=== PATIENT | female | born 1930 | race Caucasian/White ===

== ENCOUNTER 2016-11-28 14:57 | Observation (INO) | payer OTHER ==
[~2016-11-28] VITALS: Ht 154.9 cm; Wt 63.2 kg
[~2016-11-28 14:57] MED LIST: ADVAIR 100/501 DISK IH; ALLOPURINOL100 MG PO; ARTIFICIAL TEAR15 M1 BOTH EYES; ASPIR-LOW81 MG PO; ASPIRIN81 M1 PO; Aspirin E.C. PO; BACTRIM,SEPT1 TABLE1 PO; BACTRIM,SEPT1 TABLET PO; BENTYL10 MG PO; BISACODYL5 MG PO; Bentyl PO; CARVEDILOL12.5 MG PO; CARVEDILOL25 MG PO; CENTRUM SILV1 TABLET PO; CLOPIDOGREL75 MG PO; COREG25 M1 PO; CRANBERRY450 M1 PO; Coreg PO; DAILY VITAMIN1 EAC8 PO; DICYCLOMINE HCL10 MG PO; DIOVAN HCT 11 TABLET PO; DIOVAN320 MG PO; ELIQUIS2.5 MG PO; FISH OIL 1,0001 EAC7 PO; FLORASTOR250 MG PO; HYDROCHLOROTHIA25 MG PO; Hydrodiuril,Oretic,E PO; JANUVIA25 M1 PO; JANUVIA25 MG PO; KEFLEX500 MG PO; LEVAQUIN500 MG PO; MECLIZINE HCL12.5 M1 PO; METOCLOPRAMIDE10 MG PO; MULTIVITAMIN1 EAC2 PO; NABI650T PO; NITROSTAT0.4 MG PO; NITROSTAT0.4 MG SL; NORCO 5/3251 TABLET PO; OMEPRAZOLE20 MG PO; PRILOSEC20 MG PO; PROVENTIL,200 INHALA IH; REPATHA SU140 MG/1 M SC; SENNA PLUS TAB1 EACH PO; SIMVASTATIN5 MG PO; TYLENOL EXTRA500 MG PO; VENTOLIN HFA18 GM IH; VITAMIN D2000 UNIT PO; XARELTO15 MG PO; Xarelto PO; ZOCOR5 MG PO; ZOFRAN ODT4 MG PO; ZOFRAN4 MG PO; Zocor PO
[2016-11-28 15:43] LABS: HEMATOCRIT 43.4 % (36.0-46.0); MCH 30.7 PG (29.0-34.0); MCHC 33.4 G/DL (30.0-36.0); MCV 91.8 FL (83-99); MEAN PLAT.VOLUME 10.7 uM^3 (9.5-12.4); PLATELET COUNT 223 K/uL (156-360); RBC DIS.WIDTH-CV 13.9 % (11.8-14.6); RBC DIS.WIDTH-SD 45.8 % (39-53); RED BLOOD COUNT 4.73 M/uL (3.80-5.20); WHITE BLOOD COUNT 9.8 K/uL (4.1-10.2)
[2016-11-28 15:54] LABS: CHLORIDE 111 mEq/L (99-109); POTASSIUM 4.6 mEq/L (3.7-5.4); PROTHROMBIN TIME 10.6 (9.2-11.2); PTT 28.9 (25-32); SODIUM 144 mEq/L (136-147)
[2016-11-28 15:55] LABS: GLUCOSE 146 mg/dL (70-99)
[2016-11-28 15:57] LABS: ANION GAP 9 MEQ/L (2-14)
[2016-11-28 15:59] LABS: GFR ESTIMATE (CALCULATED) 32 mL/min/
[2016-11-28 16:00] LABS: UREA NITROGEN (BUN) 37 mg/dL (9-23)
[2016-11-28 16:05] LABS: TROP-I INTERPRETATION NEGATIVE; TROPONIN-I 0.02 ng/mL (0.0-0.30)
[2016-11-28 17:45] LABS: D-DIMER ELISA 0.27 mg/L FEU (< 0.57)
[2016-11-28] MEDS ORDERED: CARVEDILOL25 MG PO (18:23)
[2016-11-28] MEDS ORDERED: CRANBERRY500 M3 PO (18:25)
[2016-11-28] MEDS ORDERED: FISH OIL 1,001000 M2 PO (18:25)
[2016-11-28 21:25] VITALS: BP 214/91
[2016-11-28 22:18] LABS: TROP-I INTERPRETATION NEGATIVE; TROPONIN-I 0.03 ng/mL (0.0-0.30)
[2016-11-29 00:25] VITALS: BP 121/56
[2016-11-29 03:55] VITALS: BP 123/58
[2016-11-29 05:09] LABS: TROP-I INTERPRETATION NEGATIVE; TROPONIN-I 0.01 ng/mL (0.0-0.30)
[2016-11-29 05:54] LABS: HDL CHOLESTEROL 59 MG/DL (Desirable>=50); LDL CHOLESTEROL 80 mg/dL (Desirable<100); NON-HDL CHOLESTEROL 89 mg/dL (Desirable<160); TOTAL CHOLESTEROL 148 mg/dL (Desirable<200); TRIGLYCERIDES 45 MG/DL (Normal: <150)
[2016-11-29 07:14] VITALS: BP 131/68
[2016-11-29 11:23] VITALS: BP 132/81
== END 2016-11-29 13:42 | disposition home or self-care (01) ==
LOC: EME → EDBD 14:57 → EME 14:57 → EDOF 20:11 → 5WEST 20:11
PROVIDERS: Emergency Medicine; Hospitalist; Physician Assistant Medical
DX: R07.9 Chest pain, unspecified (principal); I25.10 Atherosclerotic heart disease of native coronary artery without angina pectoris; Z98.61 Coronary angioplasty status; I48.2 Chronic atrial fibrillation; Z79.01 Long term (current) use of anticoagulants; J45.909 Unspecified asthma, uncomplicated; I12.9 Hypertensive chronic kidney disease with stage 1 through stage 4 chronic kidney disease, or unspecified chronic kidney disease; E78.5 Hyperlipidemia, unspecified; E11.22 Type 2 diabetes mellitus with diabetic chronic kidney disease; N18.3 Chronic kidney disease, stage 3 (moderate); Z86.718 Personal history of other venous thrombosis and embolism; Z98.890 Other specified postprocedural states; Z88.8 Allergy status to other drugs, medicaments and biological substances
CPT/HCPCS: 71020; 80048; 80061; 82948; 83605; 83880; 84484; 85027; 85379; 85610; 85730; 87040; 93005; 94640; 94640 76; 99202; 99281; 99285; G0378; G8978 GP CH; G8979 GP CH; G8980 GP CH; G8987 GO CH; G8988 GO CH; G8989 GO CH; J0360; J1940; J3475; J7512

== ENCOUNTER 2017-11-25 08:50 | Emergency (ER) | payer OTHER ==
[~2017-11-25] VITALS: Ht 157.5 cm; Wt 71.8 kg
[~2017-11-25 08:50] MED LIST changes: +CRANBERRY500 M3 PO; +FISH OIL 1,001000 M2 PO
[2017-11-25 09:34] LABS: HEMATOCRIT 44.2 % (36.0-46.0); HEMOGLOBIN 15.2 G/DL (11.9-15.5); MCH 32.1 PG (29.0-34.0); MCHC 34.4 G/DL (30.0-36.0); MCV 93.4 FL (83-99); PLATELET COUNT 218 K/uL (156-360); RBC DIS.WIDTH-CV 13.1 % (11.8-14.6); RBC DIS.WIDTH-SD 44.9 % (39-53); RED BLOOD COUNT 4.73 M/uL (3.80-5.20); WHITE BLOOD COUNT 10.3 K/uL (4.1-10.2)
[2017-11-25 09:59] LABS: TROP-I INTERPRETATION NEGATIVE; TROPONIN-I 0.02 ng/mL (0.0-0.30)
[2017-11-25 10:04] LABS: CHLORIDE 106 MEQ/L (99-109); POTASSIUM 4.7 MEQ/L (3.7-5.4); SODIUM 141 MEQ/L (136-147)
[2017-11-25 10:10] LABS: CREATININE 1.5 MG/DL (0.6-1.3); GFR ESTIMATE (CALCULATED) 35 mL/min/; GLUCOSE 114 mg/dL (70-99); UREA NITROGEN (BUN) 29 mg/dL (9-23)
[2017-11-25] MEDS ORDERED: ZITHROMAX250 MG PO (10:26)
[2017-11-25] MEDS ORDERED: TESSALON PERLE100 MG PO (10:26)
[2017-11-25] MEDS ORDERED: PREDNISONE20 MG PO (10:26)
[2017-11-25 11:49] VITALS: BP 160/93
== END 2017-11-25 11:49 | disposition home or self-care (01) ==
LOC: EME 08:50
PROVIDERS: Emergency Medicine
DX: J44.9 Chronic obstructive pulmonary disease, unspecified (principal); I48.91 Unspecified atrial fibrillation; I25.2 Old myocardial infarction; R94.31 Abnormal electrocardiogram [ECG] [EKG]; E11.9 Type 2 diabetes mellitus without complications; E78.5 Hyperlipidemia, unspecified; F32.9 Major depressive disorder, single episode, unspecified; Z87.01 Personal history of pneumonia (recurrent); Z96.641 Presence of right artificial hip joint; Z95.5 Presence of coronary angioplasty implant and graft; Z86.73 Personal history of transient ischemic attack (TIA), and cerebral infarction without residual deficits; Z90.49 Acquired absence of other specified parts of digestive tract; Z90.89 Acquired absence of other organs; Z85.828 Personal history of other malignant neoplasm of skin; Z88.6 Allergy status to analgesic agent; Z88.8 Allergy status to other drugs, medicaments and biological substances
CPT/HCPCS: 71046; 80048; 84484; 85027; 93005; 94640; 99281; 99284; J7512

== ENCOUNTER 2018-01-11 15:01 | Inpatient (IN) | payer OTHER ==
[~2018-01-11] VITALS: Ht 154.9 cm; Wt 70.5 kg
[~2018-01-11 15:01] MED LIST changes: +PREDNISONE20 MG PO; +TESSALON PERLE100 MG PO; +TYLENOL325 M2 PO; +ZITHROMAX250 MG PO
[2018-01-11 15:39] LABS: HEMATOCRIT 38.5 % (36.0-46.0); HEMOGLOBIN 12.9 G/DL (11.9-15.5); MCH 31.9 PG (29.0-34.0); MCHC 33.5 G/DL (30.0-36.0); MCV 95.3 FL (83-99); PLATELET COUNT 206 K/uL (156-360); RBC DIS.WIDTH-CV 13.5 % (11.8-14.6); RBC DIS.WIDTH-SD 47.8 % (39-53); RED BLOOD COUNT 4.04 M/uL (3.80-5.20); WHITE BLOOD COUNT 8.5 K/uL (4.1-10.2)
[2018-01-11 15:48] LABS: ALBUMIN 3.3 g/dL (3.2-4.8); CHLORIDE 108 mEq/L (99-109); POTASSIUM 4.2 mEq/L (3.7-5.4); SODIUM 141 mEq/L (136-147)
[2018-01-11 15:50] LABS: PTT 27.3 SEC (25-37)
[2018-01-11 15:51] LABS: GLUCOSE 178 mg/dL (70-99); TOTAL PROTEIN 6.2 g/dL (6.4-8.3)
[2018-01-11 15:53] LABS: TOTAL BILIRUBIN 0.3 mg/dL (0.0-1.0)
[2018-01-11 15:54] LABS: ALKALINE PHOSPHATASE 72 IU/L (3-129)
[2018-01-11 15:55] LABS: CREATININE 1.5 mg/dL (0.6-1.3); GFR ESTIMATE (CALCULATED) 35 mL/min/
[2018-01-11 15:56] LABS: AST (GOT) 15 IU/L (2-34); UREA NITROGEN (BUN) 26 mg/dL (9-23)
[2018-01-11 15:57] LABS: ALT (GPT) 10 IU/L (3-49)
[2018-01-11 16:02] LABS: INTER. NORMALIZED RATIO 1.2
[2018-01-11] MEDS ORDERED: ELIQUIS2.5 MG PO (16:41)
[2018-01-11] MEDS ORDERED: ATROVENT 00.5 MG/2.5 IH (16:50)
[2018-01-11] MEDS ORDERED: JANUVIA25 MG PO (16:50)
[2018-01-11] MEDS ORDERED: ALLOPURINOL100 MG PO (16:50)
[2018-01-11 17:09] LABS: TROP-I INTERPRETATION NEGATIVE; TROPONIN-I < 0.01 ng/mL (0.0-0.30)
[2018-01-11 20:00] VITALS: BP 178/80
[2018-01-11 21:00] VITALS: BP 178/80
[2018-01-11 23:18] VITALS: BP 175/80
[2018-01-12] VITALS (7 sets, daily range): BP systolic 138–178; BP diastolic 67–88
[2018-01-12 06:11] LABS: HEMATOCRIT 37.3 % (36.0-46.0); HEMOGLOBIN 12.1 G/DL (11.9-15.5); MCH 30.6 PG (29.0-34.0); MCHC 32.4 G/DL (30.0-36.0); MCV 94.2 FL (83-99); PLATELET COUNT 206 K/uL (156-360); RBC DIS.WIDTH-CV 13.4 % (11.8-14.6); RBC DIS.WIDTH-SD 46.6 % (39-53); RED BLOOD COUNT 3.96 M/uL (3.80-5.20)
[2018-01-12 06:24] LABS: INTER. NORMALIZED RATIO 1.2
[2018-01-12 06:26] LABS: PTT 26.6 SEC (25-37)
[2018-01-12 06:44] LABS: CHLORIDE 108 MEQ/L (99-109); CREATININE 1.1 MG/DL (0.6-1.3); GFR ESTIMATE (CALCULATED) 50 mL/min/; GLUCOSE 161 mg/dL (70-99); POTASSIUM 4.1 MEQ/L (3.7-5.4); SODIUM 138 MEQ/L (136-147); UREA NITROGEN (BUN) 20 mg/dL (9-23)
[2018-01-13] VITALS (8 sets, daily range): BP systolic 107–189; BP diastolic 56–86
[2018-01-14 04:13] VITALS: BP 129/58
[2018-01-14 06:06] LABS: HEMATOCRIT 32.4 % (36.0-46.0); HEMOGLOBIN 10.6 G/DL (11.9-15.5)
[2018-01-14 08:24] VITALS: BP 122/56
[2018-01-14 12:00] VITALS: BP 113/53
[2018-01-14 16:37] VITALS: BP 146/68
[2018-01-14 20:30] VITALS: BP 160/73
[2018-01-15] VITALS (7 sets, daily range): BP systolic 116–156; BP diastolic 54–70
[2018-01-15 05:51] LABS: HEMATOCRIT 30.6 % (36.0-46.0); HEMOGLOBIN 10.4 G/DL (11.9-15.5); MCV 93.3 FL (83-99)
[2018-01-15 08:42] LABS: CHLORIDE 102 MEQ/L (99-109); CREATININE 1.2 MG/DL (0.6-1.3); GFR ESTIMATE (CALCULATED) 45 mL/min/; GLUCOSE 121 mg/dL (70-99); POTASSIUM 3.9 MEQ/L (3.7-5.4); SODIUM 133 MEQ/L (136-147); UREA NITROGEN (BUN) 28 mg/dL (9-23)
[2018-01-15] MEDS ORDERED: ENDOCET 5-3251 EACH PO (11:19)
[2018-01-16 04:01] VITALS: BP 110/59
[2018-01-16 08:28] VITALS: BP 103/55
== END 2018-01-16 10:15 | DRG 470 ==
LOC: EME 15:01 → EDOF 17:19 → 3EAST 17:19 → ENRESERV 17:32 → 3EAST 19:34
PROVIDERS: Emergency Medicine; Hospitalist; Internal Medicine; Orthopaedic Surgery
PROC: 0SR9019 Replacement of Right Hip Joint with Metal Synthetic Substitute, Cemented, Open Approach (ICD-10-PCS; principal; 2018-01-11)
DX: S72.031A Displaced midcervical fracture of right femur, initial encounter for closed fracture (principal); S72.001A Fracture of unspecified part of neck of right femur, initial encounter for closed fracture; W18.39XA Other fall on same level, initial encounter; I48.91 Unspecified atrial fibrillation; I25.10 Atherosclerotic heart disease of native coronary artery without angina pectoris; E11.22 Type 2 diabetes mellitus with diabetic chronic kidney disease; E78.5 Hyperlipidemia, unspecified; H35.30 Unspecified macular degeneration; F41.9 Anxiety disorder, unspecified; I05.2 Rheumatic mitral stenosis with insufficiency; I12.9 Hypertensive chronic kidney disease with stage 1 through stage 4 chronic kidney disease, or unspecified chronic kidney disease; K21.9 Gastro-esophageal reflux disease without esophagitis; I48.2 Chronic atrial fibrillation; K58.9 Irritable bowel syndrome, unspecified; N18.3 Chronic kidney disease, stage 3 (moderate); I27.20 Pulmonary hypertension, unspecified; J44.9 Chronic obstructive pulmonary disease, unspecified; Z79.01 Long term (current) use of anticoagulants; I25.2 Old myocardial infarction; Y92.099 Unspecified place in other non-institutional residence as the place of occurrence of the external cause; Y93.9 Activity, unspecified; Z86.73 Personal history of transient ischemic attack (TIA), and cerebral infarction without residual deficits; Z88.6 Allergy status to analgesic agent; Z88.8 Allergy status to other drugs, medicaments and biological substances; Z82.49 Family history of ischemic heart disease and other diseases of the circulatory system; Z79.84 Long term (current) use of oral hypoglycemic drugs; Z90.710 Acquired absence of both cervix and uterus; Z95.5 Presence of coronary angioplasty implant and graft; Z85.828 Personal history of other malignant neoplasm of skin
CPT/HCPCS: 71045; 73502; 80048; 80053; 82948; 84484; 85014; 85018; 85027; 85610; 85730; 86850; 86900; 86901; 93005; 97530 GP; 99281; 99285; C1713; J0131; J0330; J0690; J2405; J7030; J7120